=== PATIENT | male | born 1960 | race Caucasian/White ===

== ENCOUNTER 2017-06-18 06:38 | Day surgery (SDC) | payer BC ==
[2017-06-14 10:32] VITALS: BMI 26.6
[~2017-06-18 06:38] MED LIST: LACTATED RINGERS 1,000 ML IV SCH; LIDOCAINE 1% 20 ML VIAL (10MG/ML) FOR IV START INTRADERMA PRN
[2017-06-18] MEDS ORDERED: LACTATED RINGERS 1,000 ML IV ONE (06:58)
[2017-06-18 07:10] VITALS: TEMP 97.2
[2017-06-18] MEDS ORDERED: PROPOFOL 10 MG/ML 20 ML VIAL IV ONE (07:39)
[2017-06-18] MEDS ORDERED: LIDOCAINE 1% INJ 10MG/ML (20 ML MDV) ONE (07:39)
--- NOTE | 2017-06-18 08:14 | P.GSHP ---
History of Present Illness H&P Date: 06/18/17 Chief Complaint: Screening colonoscopy, history: Polyps This is a 56-year-old male referred from [facility]. Patient rents today for screening colonoscopy. His last colonoscopy was over 5 years ago. He has a history of colon polyps. Past Medical History Past Medical History: Hyperlipidemia, Hypertension Additional Past Medical History / Comment(s): "R side of Heart Weak"; Hiatal Hernia History of Any Multi-Drug Resistant Organisms: None Reported Past Surgical History: Heart Catheterization With Stent Additional Past Surgical History / Comment(s): Right Hand Surgery (compound fracture), Right testicle removed, Right heel surgery Past Anesthesia/Blood Transfusion Reactions: No Reported Reaction Date of Last Stent Placement:: 2013 Smoking Status: Former smoker - Past Family History Mother Family Medical History: Cancer Additional Family Medical History / Comment(s): pancreatic CA Father Family Medical History: Coronary Artery Disease (CAD) Additional Family Medical History / Comment(s): triple bypass Brother(s) Additional Family Medical History / Comment(s): cardiac sents Sister(s) Family Medical History: Myocardial Infarction ([place]) Medications and Allergies Home Medications Medication Instructions Recorded Confirmed Type Atorvastatin [Lipitor] 40 mg PO DAILY 02/09/14 06/18/17 History Lisinopril [Zestril] 10 mg PO DAILY #0 02/09/14 06/18/17 Rx Clopidogrel [Plavix] 75 mg PO DAILY #90 tab 02/10/14 06/18/17 Rx Isosorbide Mononitrate ER [Imdur] 30 mg PO DAILY #30 tab.er.24h 02/10/14 Rx Nitroglycerin Sl Tabs [Nitrostat] 0.4 mg SUBLINGUAL Q5M PRN #30 tab 02/10/14 Rx Aspirin [Adult Low Dose Aspirin EC] 81 mg PO DAILY 06/14/17 06/14/17 History Ranitidine HCl 150 mg PO HS 06/14/17 06/18/17 History Allergies Allergy/AdvReac Type Severity Reaction Status Date / Time No Known Allergies Allergy Verified 06/18/17 07:08 Surgical - Exam Vital Signs Temp Pulse Resp BP Pulse Ox 97.2 F L 71 14 135/79 98 06/18/17 07:08 06/18/17 07:08 06/18/17 07:08 06/18/17 07:08 06/18/17 07:08 - General well developed, no distress - Eyes PERRL - ENT normal pinna - Neck no masses - Respiratory normal expansion - Cardiovascular Rhythm: regular - Abdomen Abdomen: soft, non tender Assessment and Plan Plan: History: Polyps. We'll perform screening colonoscopy.
--- NOTE | 2017-06-18 08:27 | P.OP ---
Date of Procedure: 06/18/17 Preoperative Diagnosis: Screening colonoscopy History of colon polyps Postoperative Diagnosis: Diverticulosis Procedure(s) Performed: Colonoscopy Anesthesia: MAC Surgeon: Carroll Méndez Pathology: none sent Condition: stable Disposition: PACU Description of Procedure: The patient's placed on the endoscopy table in the lateral position. He received IV sedation. Digital rectal exam performed which revealed no abnormalities. The prostate was symmetric without nodules. Flexible colonoscope was then placed patient anus and passed throughout the entire colon. The ileocecal valve was visualized. The cecum, ascending and transverse colon appeared normal. In the descending and sigmoid colon there was diverticular changes seen. There is no evidence of diverticulitis. The scope was then brought back the rectum was normal. The scope was withdrawn for patient.
[2017-06-18 08:50] VITALS: RESP 16
[2017-06-18 08:59] VITALS: BP 119/82; PULSE 68
== END 2017-06-18 09:15 | disposition home or self-care (01) ==
LOC: ORWHC2ENDO 06:38
PROVIDERS: ATTEND Surgery
DX: Z12.11 Encounter for screening for malignant neoplasm of colon (principal); Z86.010 Personal history of colon polyps; K57.30 Diverticulosis of large intestine without perforation or abscess without bleeding; E78.5 Hyperlipidemia, unspecified; I10 Essential (primary) hypertension; Z87.891 Personal history of nicotine dependence; Z95.5 Presence of coronary angioplasty implant and graft; Z79.02 Long term (current) use of antithrombotics/antiplatelets; Z79.82 Long term (current) use of aspirin; Z79.899 Other long term (current) drug therapy
CPT/HCPCS: J2001; J2704; G0105

== ENCOUNTER 2018-11-12 06:22 | Day surgery (SDC) | payer BC ==
[2018-11-08 10:49] VITALS: BMI 25.2
[~2018-11-12 06:22] MED LIST changes: +HEPARIN SODIUM,PORCINE 5,000 UNIT/ML 1 ML VIAL SQ ONE; -LACTATED RINGERS 1,000 ML IV SCH; -LIDOCAINE 1% 20 ML VIAL (10MG/ML) FOR IV START INTRADERMA PRN; +ceFAZolin IN SWFI 2 GM/20 ML SYRINGE IVP ONE
[2018-11-12] MEDS ORDERED: HYDROmorphone 0.5 MG/0.5 ML SYRINGE IVP PRN (06:27)
[2018-11-12] MEDS ORDERED: DEXAMETHASONE SOD PHOSPHATE 10 MG/ML 1 ML VIAL IV ONE (06:27)
[2018-11-12] MEDS ORDERED: ONDANSETRON 4 MG/2 ML VIAL IVP ONE (06:27)
[2018-11-12] MEDS ORDERED: fentaNYL (PF) 50 MCG/ML 2 ML AMP IVP ONE (06:53)
[2018-11-12] MEDS ORDERED: MIDAZOLAM 2 MG/2 ML VIAL IVP ONE (06:53)
[2018-11-12] MEDS: LACTATED RINGERS 1,000 ML IV SCH (07:13)
--- NOTE | 2018-11-12 07:55 | P.GSHP ---
History of Present Illness H&P Date: 11/12/18 Chief Complaint: Left inguinal hernia This a 58-year-old male who presents today for laparoscopic robotic system repair of left inguinal hernia. Patient developed a tender mass in his left groin. Past Medical History Past Medical History: Hyperlipidemia, Hypertension Additional Past Medical History / Comment(s): "R side of Heart Weak"; Hiatal Hernia History of Any Multi-Drug Resistant Organisms: None Reported Past Surgical History: Heart Catheterization With Stent Additional Past Surgical History / Comment(s): Right Hand Surgery (compound fracture), Right testicle removed, Right heel surgery, nose surgery Past Anesthesia/Blood Transfusion Reactions: No Reported Reaction Date of Last Stent Placement:: 2013 Smoking Status: Former smoker - Past Family History Mother Family Medical History: Cancer Additional Family Medical History / Comment(s): pancreatic and bladder CA Father Family Medical History: Coronary Artery Disease (CAD) Additional Family Medical History / Comment(s): triple bypass Brother(s) Additional Family Medical History / Comment(s): cardiac sents Sister(s) Family Medical History: Myocardial Infarction ([place]) Medications and Allergies Home Medications Medication Instructions Recorded Confirmed Type Atorvastatin [Lipitor] 40 mg PO DAILY 02/09/14 11/08/18 History Clopidogrel [Plavix] 75 mg PO DAILY #90 tab 02/10/14 11/08/18 Rx Isosorbide Mononitrate ER [Imdur] 30 mg PO DAILY #30 tab.er.24h 02/10/14 11/08/18 Rx Aspirin [Adult Low Dose Aspirin EC] 81 mg PO DAILY 06/14/17 11/08/18 History Ranitidine HCl 150 mg PO BID 06/14/17 11/08/18 History Lisinopril [Zestril] 20 mg PO BID 11/08/18 11/08/18 History Metoprolol Tartrate 25 mg PO DAILY 11/08/18 11/08/18 History Allergies Allergy/AdvReac Type Severity Reaction Status Date / Time No Known Allergies Allergy Verified 11/12/18 06:40 Surgical - Exam Vital Signs Temp Pulse Resp BP Pulse Ox 97.7 F 65 16 139/72 98 11/12/18 06:40 11/12/18 06:40 11/12/18 06:40 11/12/18 06:40 11/12/18 06:40 - General well developed, well nourished, no distress - Eyes PERRL - ENT normal pinna - Neck no masses - Respiratory normal expansion - Cardiovascular Rhythm: regular - Abdomen Abdomen: soft, non tender Hernia: inguinal (Reducible left inguinal hernia) Assessment and Plan Assessment: Left inguinal hernia. We'll perform laparoscopic robotic-assisted repair.
[2018-11-12] MEDS ORDERED: LIDOCAINE 1% INJ 10MG/ML (20 ML MDV) ONE (07:57)
[2018-11-12] MEDS ORDERED: GLYCOPYRROLATE 0.2 MG/ML 2 ML VIAL ONE (07:57)
[2018-11-12] MEDS ORDERED: ROCURONIUM BROMIDE 10 MG/ML 10 ML VIAL IV ONE (07:57)
[2018-11-12] MEDS ORDERED: ROPIVACAINE 5 MG/ML 30 ML VIAL ONE (07:57)
[2018-11-12] MEDS ORDERED: NEOSTIGMINE 1 MG/ML 10 ML VIAL ONE (07:57)
[2018-11-12] MEDS ORDERED: LIDOCAINE 2%-EPI 1:100,000 20 ML VIAL ONE (07:57)
[2018-11-12] MEDS ORDERED: PROPOFOL 10 MG/ML 20 ML VIAL IV ONE (07:57)
[2018-11-12] MEDS ORDERED: MIDAZOLAM 2 MG/2 ML VIAL ONE (07:57)
[2018-11-12] MEDS ORDERED: ePHEDrine SULFATE/0.9% NACL/PF 50 MG/5 ML SYRINGE IV ONE (07:57)
[2018-11-12] MEDS ORDERED: fentaNYL (PF) 50 MCG/ML 2 ML AMP ONE (07:57)
[2018-11-12] MEDS ORDERED: SUCCINYLCHOLINE CHLORIDE 100 MG/5 ML SYR IV ONE (07:57)
[2018-11-12] MEDS ORDERED: BUPIVACAIN-EPI 0.5%-1:200,000 30 ML VIAL SQ ONE (08:23)
[2018-11-12 09:05] VITALS: TEMP 97.6
--- NOTE | 2018-11-12 09:17 | P.OP ---
Date of Procedure: 11/12/18 Preoperative Diagnosis: Left inguinal hernia Postoperative Diagnosis: Left inguinal hernia Procedure(s) Performed: Robotic-assisted repair of left inguinal hernia Excision of left cord lipoma Anesthesia: PERFECTO Surgeon: Carroll Méndez Estimated Blood Loss (ml): 5 Pathology: other (Left cord lipoma) Condition: stable Disposition: PACU Description of Procedure: MThe patient's placed on the operating table in the supine position. The patient received general anesthesia. The patient's abdomen was prepped and draped in usual sterile fashion. The skin was anesthetized 1% local Xylocaine at the incision sites. Using an 11 blade a skin incision was made at the umbilicus. The fascia was grasped with a [place] and then the peritoneal cavity was entered with the Veress needle. Position of the Veress needle was confirmed with a positive drop test. After adequate insufflation a 5 mm trocar was placed into the peritoneal cavity. The Laparoscope was placed the peritoneal cavity. And a robotic 8 mm trocar was placed in the right lateral position and then another 8 mm robotic trochars placed in the left lateral position. The original 5 mm trocar was exchanged for a 12 mm trocar. The patient was placed in reverse Trendelenburg and then the patient was docked to the robot. Next the peritoneum over top of the left inguinal hernia was incised and then using blunt and sharp dissection and electrocautery the hernia sac was dissected free from the floor of the inguinal canal. The hernia sac was completely reduced into the peritoneal cavity. The cord lipoma was dissected free and withdrawn the peritoneal cavity. And then using the Pro brake repairer hydraulic mesh the hernia was repaired. The peritoneum was then sutured with 20V lock suture. The patient was then undocked the robot. The needle was withdrawn from the peritoneal cavity. The umbilical trocar site was closed with 0 Ethibond suture. The skin was closed interrupted 3-0 Monocryl suture. Dermabond dressing was applied. Patient was sent to recovery in stable condition.
[2018-11-12 09:19] VITALS: RESP 16
--- NOTE | 2018-11-12 09:36 | P.ONQ ---
Anesthesiology Proc Note - PNB - Peripheral Nerve Block Performed Left Transversus Abdominis Single Time Out Performed: Yes Procedure Start Time: 06:53 Indication: Acute Post-Operative Pain Sedation Type: Sedate with meaningful contact maintained Preparation: Sterile Prep Position: Supine Catheter: None Needle Types: Other (see comment) (Pajunk) Needle Size: 100mm (4") Needle Gauge: 21 Technique: Ultrasound Injectate: Other (see comment) (Ropivacaine 0.25%/lidocaine 0.5% 30 mL) Adjunct: Epinephrine (see comment for dilution ratio) (1:200,000) Blood Aspirated: No Pain Paresthesia on Injection Noted: No Resistance on Injection: Normal Events: Uneventful and Well Tolerated
[2018-11-12] MEDS ORDERED: HYDROcodone/APAP 7.5-325MG 1 EACH TAB PO ONE (10:30)
[2018-11-12 10:41] VITALS: BP 133/83; PULSE 64
== END 2018-11-12 11:00 | disposition home or self-care (01) ==
LOC: OR 06:22
PROVIDERS: ATTEND Surgery
DX: K40.90 Unilateral inguinal hernia, without obstruction or gangrene, not specified as recurrent (principal); I25.10 Atherosclerotic heart disease of native coronary artery without angina pectoris; I10 Essential (primary) hypertension; E78.5 Hyperlipidemia, unspecified; K21.9 Gastro-esophageal reflux disease without esophagitis; K44.9 Diaphragmatic hernia without obstruction or gangrene; Z95.5 Presence of coronary angioplasty implant and graft; Z79.02 Long term (current) use of antithrombotics/antiplatelets; Z79.82 Long term (current) use of aspirin; Z79.899 Other long term (current) drug therapy; Z87.891 Personal history of nicotine dependence
CPT/HCPCS: 49650; S2900; 64486; 88304

== ENCOUNTER → 2021-02-24 | Outpatient (CLI) | payer OTHER ==
--- NOTE | 2021-03-02 13:16 | P.ARTDOP ---
Arterial Doppler LOWER EXTREMITY ARTERIAL DOPPLER: DATE OF SERVICE: 02/24/2021 Reason for study: Bilateral foot numbness. Doppler waveforms: Multiphasic bilaterally throughout. Pulse volume recording: []. Pressure gradients: Gradients above the low thigh are mild bilaterally. Another gradient below the knee on the left. Ankle-brachial indices: 0.88 on the right and 0.67 on the left. Toe brachial indices: [] on the right, [] on the left Impression: Mild right iliofemoral disease. Mild left iliofemoral disease and mild infrapopliteal disease. Circulatory status should be adequate for healing. Clinical correlation recommended.
== END | disposition home or self-care (01) ==
LOC: RADUSWWP 14:35
DX: I73.9 Peripheral vascular disease, unspecified (principal)
CPT/HCPCS: 93923

== ENCOUNTER 2025-01-30 12:24 | Emergency (ER) | payer OTHER ==
[2025-01-30 12:30] VITALS: BP 178/105; PULSE 67; RESP 20; TEMP 97.4
[2025-01-30 14:16] LABS: ALT 21 U/L (4-49); AST 25 U/L (17-59); African American GFR (CKD) >90 (>60 ml/min/1.73 sqM); Albumin 4.4 g/dL (3.5-5.0); Alkaline Phosphatase 72 U/L (38-126); Anion Gap 7 mmol/L; Blood Urea Nitrogen 19 mg/dL (9-20); Calcium 9.4 mg/dL (8.4-10.2); Carbon Dioxide 25 mmol/L (22-30); Chloride 105 mmol/L (98-107); Glucose 121 mg/dL (74-99); Non-African American GFR(CKD) >90 (>60 ml/min/1.73 sqM); Potassium 4.8 mmol/L (3.5-5.1); Sodium 137 mmol/L (137-145); Total Bilirubin 0.8 mg/dL (0.2-1.3)
[2025-01-30 14:18] LABS: Basophils # (A) 0.05 10*3/uL (0.00-0.10); Basophils % (A) 0.8 %; Eosinophils # (A) 0.07 10*3/uL (0.04-0.35); Eosinophils % (A) 1.2 %; HCT 42.1 % (39.6-50.0); HGB 14.6 g/dL (13.0-17.0); Lymphocytes # (A) 1.44 10*3/uL (0.90-5.00); Lymphocytes % (A) 23.9 %; MCH 32.8 pg (27.0-32.0); MCHC 34.7 g/dL (32.0-37.0); MCV 94.6 fL (80.0-97.0); Mean Platelet Volume 10.1 fL (9.5-12.2); Monocytes # (A) 0.61 10*3/uL (0.20-1.00); Monocytes % (A) 10.1 %; Neutrophils # (A) 3.82 10*3/uL (1.80-7.70); Neutrophils % (A) 63.5 %; Platelet Count 232 10*3/uL (140-440); RBC 4.45 10*6/uL (4.40-5.60); WBC 6.02 10*3/uL (4.50-10.00)
[2025-01-30 14:26] LABS: INR 0.9 (<1.2); Partial Thromboplastin Time 22.3 sec (22.0-30.0); Prothrombin Time 10.6 sec (10.0-12.5)
--- NOTE | 2025-01-30 15:18 | CT ---
EXAMINATION TYPE: CT angio tho/abd W Run Off CT DLP: 2345 mGycm, Automated exposure control for dose reduction was used. DATE OF EXAM: 01/30/2025 2:54 PM COMPARISON:Ultrasound arterial lower extremity 01/23/2025, 02/24/2021 CLINICAL INDICATION:Male, 64 years old with history of leg numbness, abn arterial study; Leg numbness . Abnormal US today. Possible AAA. TECHNIQUE: Multiple thin slice sub-millimeter images were obtained through the thorax, abdomen, pelvi s, and lower extremities after administration of contrast. Patient was given Isovue 370, 100 cc intr avenously. 3-D reconstructed images and maximum intensity projection images were obtained of the aor ta and its branches. FINDINGS: CTA thorax, abdomen and pelvis: Bovine aortic arch. Mild atherosclerotic calcification of the thoraci c aorta and its branches. No evidence for significant stenosis of the thoracic aorta and its branches . No thoracic aortic aneurysm. No evidence for pulmonary embolism. No dilatation of the pulmonary art eries. Mild to moderate atherosclerotic plaque of the abdominal aorta and its branches. Fusiform distal abdo yudi aortic aneurysm measuring 4.7 x 4.7 cm. Moderate eccentric mural thrombus identified. No eviden ce for intramural hematoma or dissection of the aorta. The origins of the superior mesenteric artery, renal arteries, inferior mesenteric artery, and celiac axis are patent. Atherosclerotic plaquing is identified in the common iliac arteries. The bilateral external and internal iliac arteries are pat ent. There is moderate multisegmental stenosis of the left internal iliac artery. Short segment mild stenosis of the distal right external iliac artery. CTA Lower extremities: Right: Moderate calcified plaque of the common femoral artery. The common femoral artery is patent. T he deep femoral artery is patent. 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 The popliteal artery is patent. An terior and posterior tibial arteries as well as the peroneal artery are patent. Anterior and posterio r tibial arteries cross the ankle. Left: Moderate calcified plaque of the common femoral artery. The common femoral artery is patent. Th e deep femoral artery is patent. There is long segment occlusion of the superficial femoral artery sh ortly after its origin with noncalcified plaque. There is multifocal short segment distal reconstitut ion. The popliteal artery is patent. Anterior and posterior tibial arteries as well as the peroneal a rtery are patent. Anterior and posterior tibial arteries cross the ankle. VISCERA: The liver, spleen, adrenal glands, kidneys, pancreas, and gallbladder are not optimally enha nced due the arterial phase utilized. LIVER: Unremarkable GALLBLADDER AND BILE DUCTS: Unremarkable. PANCREAS: Unremarkable. SPLEEN: Unremarkable. ADRENAL GLANDS: Unremarkable. KIDNEYS AND URETERS: No evidence of hydronephrosis or renal calculus. The kidneys enhance symmetrical ly. PELVIS BLADDER: Unremarkable REPRODUCTIVE: Unremarkable. ABDOMEN & PELVIS STOMACH AND BOWEL: Stomach and duodenum are unremarkable. The appendix is within normal limits. Dista l colonic diverticulosis without evidence for acute diverticulitis. No evidence of bowel obstruction. PERITONEUM: No evidence of pneumoperitoneum or free fluid. VASCULATURE: No evidence of aortic aneurysm. MUSCULOSKELETAL: No acute osseous abnormalities. Degenerative changes of bilateral SI joints with ant erior bridging. LYMPH NODES: No evidence for lymphadenopathy. SOFT TISSUE/ABDOMINAL WALL: Unremarkable LUNGS/ PLEURA: The lung parenchyma appears unremarkable. AIRWAY: Patent and unremarkable.. HEART: Size within normal limits. No pericardial effusion. Mild to moderate coronary artery calcifica tions present. MEDIASTINUM: No gross evidence of adenopathy. Subcarinal calcified lymph node. VASCULATURE: No aortic aneurysm. SOFT TISSUES/LYMPH NODES: Bilateral gynecomastia. LOWER NECK: No significant findings. IMPRESSION: 1. Abdominal aortic fusiform aneurysm measuring up to 4.7 cm. No evidence for intracranial hematoma or dissection. 2. 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 3. At least two vessels are seen crossing the ankle joints bilaterally. [facility], , 01/30/2025 3:16 PM
--- NOTE | 2025-01-30 16:02 | ED ---
General Adult HPI - General Chief complaint: Recheck/Abnormal Lab/Rx Stated complaint: Numbness in feet Time Seen by Provider: 01/30/25 12:30 Source: patient Mode of arrival: ambulatory Limitations: no limitations - History of Present Illness Initial comments: 64-year-old male with past medical history of hyperlipidemia, hypertension who presents emergency department under the direction of his primary care. He reports that he has been seeing his primary care and complaining of numbness in his bilateral toes. He did have an ultrasound performed. There was an abnormal result and therefore they did call him and told him to come into the emergency department immediately. Patient states he said the pain for about a month. He denies any abdominal pain or chest pain. No shortness of breath. No fevers. No lower extremity swelling or discoloration. No other alleviating, precipitating modifying factors - Related Data Home Medications Medication Instructions Recorded Confirmed Atorvastatin [Lipitor] 40 mg PO DAILY 02/09/14 11/08/18 Aspirin [Adult Low Dose Aspirin EC] 81 mg PO DAILY 06/14/17 11/08/18 raNITIdine HCL [Zantac] 150 mg PO BID 06/14/17 11/08/18 Metoprolol Tartrate 25 mg PO DAILY 11/08/18 11/08/18 lisinopriL [Zestril] 20 mg PO BID 11/08/18 11/08/18 Previous Rx's Medication Instructions Recorded Clopidogrel [Plavix] 75 mg PO DAILY #90 tab 02/10/14 Isosorbide Mononitrate ER [Imdur] 30 mg PO DAILY #30 tab.er.24h 02/10/14 Docusate [Colace] 100 mg PO BID #20 capsule 11/12/18 HYDROcodone/APAP 7.5-325MG [Imboden 1 tab PO Q6HR PRN 3 Days #10 tab 11/12/18 7.5-325] Allergies Allergy/AdvReac Type Severity Reaction Status Date / Time No Known Allergies Allergy Verified 01/30/25 12:30 Review of Systems ROS Statement: Those systems with pertinent positive or pertinent negative responses have been documented in the HPI. ROS Other: All systems not noted in ROS Statement are negative. Past Medical History Past Medical History: Hyperlipidemia, Hypertension Additional Past Medical History / Comment(s): "R side of Heart Weak"; Hiatal Hernia History of Any Multi-Drug Resistant Organisms: None Reported Past Surgical History: Heart Catheterization With Stent Additional Past Surgical History / Comment(s): Right Hand Surgery (compound fracture), Right testicle removed, Right heel surgery, nose surgery Past Anesthesia/Blood Transfusion Reactions: No Reported Reaction Date of Last Stent Placement:: 2013 Past Psychological History: No Psychological Hx Reported Smoking Status: Never smoker Past Alcohol Use History: Occasional Past Drug Use History: Marijuana - Past Family History Mother Family Medical History: Cancer Additional Family Medical History / Comment(s): pancreatic and bladder CA Father Family Medical History: Coronary Artery Disease (CAD) Additional Family Medical History / Comment(s): triple bypass Brother(s) Additional Family Medical History / Comment(s): cardiac sents Sister(s) Family Medical History: Myocardial Infarction (VA) General Exam Limitations: no limitations General appearance: alert, in no apparent distress Head exam: Present: atraumatic, normocephalic, normal inspection Eye exam: Present: normal appearance, PERRL, EOMI. Absent: scleral icterus, conjunctival injection, periorbital swelling ENT exam: Present: normal exam, mucous membranes moist Neck exam: Present: normal inspection. Absent: tenderness, meningismus, lymph adenopathy Respiratory exam: Present: normal lung sounds bilaterally. Absent: respiratory distress, wheezes, rales, rhonchi, stridor Cardiovascular Exam: Present: regular rate, normal rhythm, normal heart sounds. Absent: systolic murmur, diastolic murmur, rubs, gallop, clicks GI/Abdominal exam: Present: soft, normal bowel sounds. Absent: distended, tenderness, guarding, rebound, rigid Extremities exam: Present: normal inspection, full ROM, normal capillary refill. Absent: tenderness, pedal edema, joint swelling, calf tenderness Back exam: Present: normal inspection Neurological exam: Present: alert, oriented X3, CN II-XII intact Psychiatric exam: Present: normal affect, normal mood Skin exam: Present: warm, dry, intact, normal color. Absent: rash Course Vital Signs 01/30/25 12:27 Temperature 97.4 F L Pulse Rate 67 Respiratory 20 Rate Blood Pressure 178/105 O2 Sat by Pulse 99 Oximetry Medical Decision Making - Medical Decision Making Was pt. sent in by a medical professional or institution (, PA, [facility], urgent care, hospital, or [facility]...) When possible be specific @ -Patient sent in by his primary care office Did you speak to anyone other than the patient for history (EMS, parent, family, police, friend...)? What history was obtained from this source @ -No Did you review nursing and triage notes (agree or disagree)? Why? @ -I reviewed and agree with nursing and triage notes Were old charts reviewed (outside hosp., previous admission, EMS record, old EKG, old radiological studies, urgent care reports/EKG's, [facility] records)? Report findings @ -No old charts were reviewed Differential Diagnosis (chest pain, altered mental status, abdominal pain women, abdominal pain men, vaginal bleeding, weakness, fever, dyspnea, syncope, headac he, dizziness, GI bleed, back pain, seizure, CVA, palpatations, mental health, musculoskeletal)? @ -Aneurysm, dissection, peripheral vascular disease EKG interpreted by me (3pts min.). @ -Yes and demonstrates sinus rhythm with a rate of 62. MS interval 149. QRS 86. QTc of 392. No acute ST segment elevations. Inverted T wave lead III X-rays interpreted by me (1pt min.). @ -None done CT interpreted by me (1pt min.). @ -yes which does not demonstrate ruptured aneurysm or dissection U/S interpreted by me (1pt. min.). @ -None done What testing was considered but not performed or refused? (CT, X-rays, U/S, labs)? Why? @ -None What meds were considered but not given or refused? Why? @ -None Did you discuss the management of the patient with other professionals (professionals i.e. , PA, [facility], lab, RT, psych nurse, hospice social worker, biomedical electronics technician, teacher, dental officer, case work aide)? Give summary @ -Spoke with Dr. Mcdaniel will follow the patient in office Was smoking cessation discussed for >3mins.? @ -No Was critical care preformed (if so, how long)? @ -No Were there social determinants of health that impacted care today? How? (Homelessness, low income, unemployed, alcoholism, drug addiction, transportation, low edu. Level, literacy, decrease access to med. care, senior care, rehab)? @ -No Was there de-escalation of care discussed even if they declined (Discuss DNR or withdrawal of care, Hospice)? DNR status @ -No What co-morbidities impacted this encounter? (DM, HTN, Smoking, COPD, CAD, Cancer, CVA, ARF, Chemo, Hep., AIDS, mental health diagnosis, sleep apnea, morbid obesity)? @ -Hypertension, hyperlipidemia Was patient admitted / discharged? Hospital course, mention meds given and route, prescriptions, significant lab abnormalities, going to OR and other pertinent info. @ -Upon arrival patient seen and evaluated in bed hallway 10. Thorough history and physical exam was performed. I did complete the CTA of the patient's abdomen pelvis with runoff. No ruptured aneurysm or dissection. Results are discussed with Dr. Mcdaniel. He will follow-up with the patient in regards to his aneurysmal dilation. Patient instructed to return for any new or worsening symptoms. He was discharged in stable condition Undiagnosed new problem with uncertain prognosis? @ -No Drug Therapy requiring intensive monitoring for toxicity (Heparin, Nitro, Insulin, Cardizem)? @ -No Were any procedures done? @ -No Diagnosis/symptom? @ -Acute bilateral toe paresthesias, aortic aneurysm Acute, or Chronic, or Acute on Chronic? @ -Acute Uncomplicated (without systemic symptoms) or Complicated (systemic symptoms)? @ -Complicated Side effects of treatment? @ -No Exacerbation, Progression, or Severe Exacerbation? @ -No Poses a threat to life or bodily function? How? (Chest pain, [place], [place], pneumonia, PE, COPD, DKA, ARF, appy, cholecystitis, CVA, Diverticulitis, Homicidal, Dolly cidal, threat to staff... and all critical care pts) @ -Yes if not watched outpatient by vascular surgeon - Lab Data Result diagrams: 01/30/25 13:56 01/30/25 13:56 Lab Results 01/30/25 01/30/25 01/30/25 Range/Units 13:56 13:56 13:56 WBC 6.02 (4.50-10.00) 10*3/uL RBC 4.45 (4.40-5.60) 10*6/uL Hgb 14.6 (13.0-17.0) g/dL Hct 42.1 (39.6-50.0) % MCV 94.6 (80.0-97.0) fL MCH 32.8 H (27.0-32.0) pg MCHC 34.7 (32.0-37.0) g/dL Plt Count 232 (140-440) 10*3/uL MPV 10.1 (9.5-12.2) fL Immature Gran % (Auto) 0.5 % Neutrophils % 63.5 % Lymphocytes % 23.9 % Monocytes % 10.1 % Eosinophils % 1.2 % Basophils % 0.8 % Immature Gran # 0.03 (0.00-0.04) 10*3/uL Neutrophils # 3.82 (1.80-7.70) 10*3/uL Lymphocytes # 1.44 (0.90-5.00) 10*3/uL Monocytes # 0.61 (0.20-1.00) 10*3/uL Eosinophils # 0.07 (0.04-0.35) 10*3/uL Basophils # 0.05 (0.00-0.10) 10*3/uL PT 10.6 (10.0-12.5) sec INR 0.9 (<1.2) APTT 22.3 (22.0-30.0) sec Sodium 137 (137-145) mmol/L Potassium 4.8 (3.5-5.1) mmol/L Chloride 105 (98-107) mmol/L Carbon Dioxide 25 (22-30) mmol/L Anion Gap 7 mmol/L BUN 19 (9-20) mg/dL Creatinine 0.90 (0.66-1.25) mg/dL Est GFR (CKD-EPI)AfAm >90 (>60 ml/min/1.73 sqM) Est GFR (CKD-EPI)NonAf >90 (>60 ml/min/1.73 sqM) Glucose 121 H (74-99) mg/dL Plasma Lactic Acid Adria (0.7-2.0) mmol/L Calcium 9.4 (8.4-10.2) mg/dL Total Bilirubin 0.8 (0.2-1.3) mg/dL AST 25 (17-59) U/L ALT 21 (4-49) U/L Alkaline Phosphatase 72 (38-126) U/L Troponin I (0.000-0.034) ng/mL Total Protein 7.0 (6.3-8.2) g/dL Albumin 4.4 (3.5-5.0) g/dL 01/30/25 01/30/25 Range/Units 13:56 13:56 WBC (4.50-10.00) 10*3/uL RBC (4.40-5.60) 10*6/uL Hgb (13.0-17.0) g/dL Hct (39.6-50.0) % MCV (80.0-97.0) fL MCH (27.0-32.0) pg MCHC (32.0-37.0) g/dL Plt Count (140-440) 10*3/uL MPV (9.5-12.2) fL Immature Gran % (Auto) % Neutrophils % % Lymphocytes % % Monocytes % % Eosinophils % % Basophils % % Immature Gran # (0.00-0.04) 10*3/uL Neutrophils # (1.80-7.70) 10*3/uL Lymphocytes # (0.90-5.00) 10*3/uL Monocytes # (0.20-1.00) 10*3/uL Eosinophils # (0.04-0.35) 10*3/uL Basophils # (0.00-0.10) 10*3/uL PT (10.0-12.5) sec INR (<1.2) APTT (22.0-30.0) sec Sodium (137-145) mmol/L Potassium (3.5-5.1) mmol/L Chloride (98-107) mmol/L Carbon Dioxide (22-30) mmol/L Anion Gap mmol/L BUN (9-20) mg/dL Creatinine (0.66-1.25) mg/dL Est GFR (CKD-EPI)AfAm (>60 ml/min/1.73 sqM) Est GFR (CKD-EPI)NonAf (>60 ml/min/1.73 sqM) Glucose (74-99) mg/dL Plasma Lactic Acid Adria 1.5 (0.7-2.0) mmol/L Calcium (8.4-10.2) mg/dL Total Bilirubin (0.2-1.3) mg/dL AST (17-59) U/L ALT (4-49) U/L Alkaline Phosphatase (38-126) U/L Troponin I <0.012 (0.000-0.034) ng/mL Total Protein (6.3-8.2) g/dL Albumin (3.5-5.0) g/dL Disposition Clinical Impression: PAD (peripheral artery disease), Abdominal aneurysm Disposition: HOME SELF-CARE Condition: Stable Instructions (If sedation given, give patient instructions): Peripheral Artery Disease (ED) Additional Instructions: Continue your clopidogrel, statin and baby aspirinas you were previously taking. Check your blood pressure daily to ensure that it is under control. Follow-up with the vascular doctors for further surveillance of your aneurysm Is patient prescribed a controlled substance at d/c from ED?: No Referrals: Joaquim Cervantes DO [Primary Care Provider] - 1-2 days Jeramy Terrell DO [Doctor of Osteopathic Medicine] - 1-2 days Time of Disposition: 16:02
== END 2025-01-30 16:25 | disposition home or self-care (01) ==
LOC: EC 12:24
DX: I73.9 Peripheral vascular disease, unspecified (principal); I71.40 Abdominal aortic aneurysm, without rupture, unspecified
CPT/HCPCS: 36415; 93005; 80053; 83605; 84484; 85025; 85610; 85730; 75635; 71275; 99284; Q9967